=== PATIENT | female | born 1955 | race Caucasian/White ===

== ENCOUNTER → 2016-09-12 | Outpatient (CLI) | payer OTHER | LOC: KOH-I 14:00 | DX: M84.372A Stress fracture, left ankle, initial encounter for fracture (principal); S82.492K Other fracture of shaft of left fibula, subsequent encounter for closed fracture with nonunion; Z88.8 Allergy status to other drugs, medicaments and biological substances; Z88.1 Allergy status to other antibiotic agents | CPT/HCPCS: 73700 ==